=== PATIENT | male | born 1935 ===

== ENCOUNTER 2017-03-12 07:00 | Inpatient (IN) | payer OTHER, MEDICARE ==
[~2017-03-12] VITALS: Ht 175.3 cm; Wt 99.8 kg
[2017-03-23] MEDS ORDERED: ELIQUIS5 M1 PO (10:35)
[2017-03-23] MEDS ORDERED: PERCOCET 5-3251 EACH PO (10:36)
[2017-03-23] MEDS ORDERED: COREG12.5 M1 PO (10:37)
[2017-03-23] MEDS ORDERED: LISINOPRIL5 M1 PO (10:37)
[2017-03-23] MEDS ORDERED: SIMVASTATIN40 M1 PO (10:38)
[2017-03-23] MEDS ORDERED: LATANOPROST2.5 ML OU (10:39)
[2017-03-23] MEDS ORDERED: BETIMOL5 M1 OU (10:39)
[2017-03-23] MEDS ORDERED: LASIX20 M1 PO (10:40)
--- NOTE | 2017-03-23 12:58 | Admission Core Measures ---
Admission Meds I reviewed the following Meds: Current Medications Sig/Gerardo Start time Last Medication Dose Stop Time Status Admin Acetaminophen 975 MG ONCE 03/23 0000 AC (Tylenol) 03/23 2359 Atorvastatin Calcium 20 MG 1700 03/23 1700 AC (Lipitor) Carvedilol 12.5 MG DAILY 03/24 1000 UNVr (Coreg) Cefazolin Sodium 2,000 MG ONCE 03/23 0000 NR (Kefzol-Ancef Inj) 03/23 2359 Furosemide 20 MG BID 03/23 1230 AC (Lasix) Latanoprost 1 GTT AT BEDTIME 03/24 2200 AC (Xalatan) Lisinopril 5 MG DAILY 03/24 1000 AC (Prinivil) Oxycodone HCl 10 MG ONCE 03/23 AC (Roxicodone) 03/23 2359 Timolol Maleate 1 GTT DAILY 03/24 1000 UNVr (Timoptic) Acute Coronary Syndrome Inclusion Criteria ACS Diagnosis No Inpatient Core Measures LDL Reminder: If No, please order W/I first 24hr of stay Congestive Heart Failure Inclusion Criteria CHF Diagnosis No Cerebrovascular accident Inclusion Criteria CVA/TIA Diagnosis No Inpatient Core Measures Bedside Swallow Eval Reminder: If BSE failed, place ST order Antithrombotic Reminder: Order Antithrombotic Medication by end of day 2 Antithrombotic Reminder: Document Reason Antithrombotic Not ordered by end of day 2 AFIB/Flutter Reminder: If Present, add to problem list AFIB/Flutter Reminder: Order Anticoag Medication for pts with AFIB/Flutter Atherosclerosis Reminder: If Present, add to problem list LDL Reminder: If No, please order W/I first 24hr of stay PT Order Reminder: If No, please order Venous thromboembolism Inpatient Core Measures VTE Risk Factors: Age > 40, Surgery No [facility] VTE prophylaxis d/t No contraindications No VTE Pharm Prophylaxis d/t No contraindications Inclusion Criteria - Per Current guidelines, there needs to be overlap - treatment for the first 5 days of Warfarin therapy. - Parenteral Anticoagulation (IV or SC) needs to be - given along with Warfarin therapy. VTE Diagnosis No VTE Type NONE VTE Confirmed by (Test) NONE Problem List As ranked by this Provider includes Assessment & Plan 1. Unilateral primary osteoarthritis, right hip HOME MEDS Home Med List Apixaban (Eliquis) 5 MG TABLET 1 TAB PO DAILY ANTICOAG (Reported) Carvedilol (Coreg) 12.5 MG TABLET 1 TAB PO DAILY HEART HEALTH (Reported) Furosemide (Lasix) 20 MG TABLET 1 TAB PO TWICE DAILY HEART HEALTH (Reported) Latanoprost 0.005 % DROPS 1 DROP OU DAILY EYE HEALTH (Reported) Lisinopril 5 MG TABLET 1 TAB PO DAILY HEART HEALTH (Reported) Oxycodone HCl/Acetaminophen (Percocet 5-325 MG Tablet) 5 MG-325 MG TABLET 1 TAB PO EVERY 6 HRS PRN PAIN (Reported) Simvastatin (Simvastatin*) 40 MG TABLET 1 TAB PO DAILY CHOLESTEROL (Reported) Timolol (Betimol) 0.5 % DROPS 1 DROP OU DAILY EYE HEALTH (Reported)
[2017-03-23] MEDS ORDERED: ELIQUIS2.5 M1 PO (13:00)
[2017-03-23] MEDS ORDERED: DILAUDID2 M1 PO (13:00)
[2017-03-23] MEDS ORDERED: MIRALAX17 G1 PO (13:00)
[2017-03-23] MEDS ORDERED: COLACE100 M1 PO (13:00)
--- NOTE | 2017-03-23 13:04 | Patient Discharge Instructions ---
Discharge Instructions General Discharge Information You were seen/treated for: Right hip pain related to unilateral primary osteoarthritis You had these procedures: Right total hip replacement Watch for these problems: Increasing pain despite the use of pain medication. Increasing redness, warmth or swelling. Drainage of any type from incision. Inability to bear weight on operative leg. Persistent nausea and vomiting. Fever greater than 101.5 degrees. Do not soak the wound: Yes No bath, but you may shower: Yes Other wound care: Please keep wound clean and dry. No ointments or lotions of any type on or near incision at any time. No exceptions. Your dressing will be changed by your nurse on the second day after your surgery. Daily dry dressing changes are recommended each day thereafter. Do not soak your wound in a bath at any time until otherwise indicated by Dr. Celis. You may shower, please dry wound immediately after shower with a clean towel. Special Instructions: Eliquis: You will be taking 2.5 mg of eliquis twice a day for the first 10 days after your surgery. After 10 days, you will switch back to your original dosing of 5 mg once daily. Constipation: Pain medication can be very constipating. Dr. Celis has recommended that you take Colace and miralax each day. You may discontinue this medication if you develop loose stool or diarrhea. If you wish to continue this medication, it is available over the counter. If you are unable to move your bowels after several days, if you are unable to pass gas and are developing bloating, nausea, or vomiting as a result, please contact your doctor. Diet Continue normal diet: Yes Recommended Diet: Heart Healthy Activity Full Activity/No Limits: No Activity Self Limited: Yes Pounds, do NOT lift more than: 10 Acute Coronary Syndrome Inclusion Criteria At DC or during hospital stay patient has or had the following: ACS DIAGNOSIS No Discharge Core Measures Meds if any: Prescribed or Continued at Discharge Meds if any: NOT Prescribed or Continued at Discharge Congestive Heart Failure Inclusion Criteria At DC or during hospital stay patient has or had the following: CHF DIAGNOSIS No Discharge Core Measures Meds if any: Prescribed or Continued at Discharge Meds if any: NOT Prescribed or Continued at Discharge Cerebrovascular accident Inclusion Criteria At DC or during hospital stay patient has or had the following: CVA/TIA Diagnosis No Discharge Core Measures Meds if any: Prescribed or Continued at Discharge Meds if any: NOT Prescribed or Continued at Discharge Venous thromboembolism Inclusion Criteria VTE Diagnosis No VTE Type NONE VTE Confirmed by (Test) NONE Discharge Core Measures - Per Current guidelines, there needs to be overlap - treatment for the first 5 days of Warfarin therapy. - If discharged on Warfarin prior to 5 days of - overlap therapy, the patient will need to be - assessed for post discharge needs including - *Post discharge parental anticoagulation - *Warfarin and/or parental anticoagulation education - *Follow up date to check INR post discharge At least 5 days overlap therapy as Inpatient No Meds if any: Prescribed or Continued at Discharge Note: Overlap Therapy is Warfarin and Anticoagulant Meds if any: NOT Prescribed or Continued at Discharge
--- NOTE | 2017-03-23 13:09 | Surgical Discharge Summary ---
Visit Information Visit Dates Admission Date: 03/23/17 Discharge Date: 03/26/2017 History of Present Illness Chief Complaint: Right hip pain related to unilateral primary osteoarthritis Surgical History Pertinent Surgical History: non-contributory Review of Systems: See H&P Hospital Course Course Attending Physician: SAUL IRVIN MD Primary Care Physician: BATOOL BRYANT MD Hospital Course: Patient was admitted to the hospital for an elective total joint replacement. The procedure was tolerated well and the patient was transferred to a general surgical floor. Diet was advanced and tolerated and the patient voided spontaneously. The patient was evaluated and treated by physical therapy. At the time of hospital discharge, the patinets vital signs were stable and within normal limits, neurovascular status was intact, and pain was controlled with the use of oral pain medications. Allergies: Coded Allergies: No Known Allergies (03/20/17) NKA PER ANTIBIOTIC ORDER SHEET OF 03/20/17 ([facility]) Disposition Summary Disposition Principal Diagnosis: Right hip unilateral primary osteoarthritis Additional Diagnosis: None Discharge Disposition: home health services Discharge Instructions General Discharge Information Code Status: Full Code Patient's Diet: Heart healthy, advance as tolerated Patient's Activity: WBAT Follow-Up Instructions/Appts: Follow up with Dr. Irvin in 6 weeks from date of surgery. Please call his office to arrange and/or confirm this appointment. Medications at Discharge Discharge Medications: Stop taking the following medications: Apixaban (Eliquis) 5 MG TABLET ORAL DAILY Continue taking these medications: Oxycodone HCl/Acetaminophen (Percocet 5-325 MG Tablet) 5 MG-325 MG TABLET 1 Tablet ORAL EVERY 6 HRS as needed for PAIN Comments: DID NOT RECEIVE WHILE IN HOSPITAL HAS BEEN TAKING DILAUDID PO PRN Carvedilol (Coreg) 12.5 MG TABLET 1 Tablet ORAL DAILY Comments: Last Taken: 03/26/17 Time: 10:45 AM Lisinopril (Lisinopril) 5 MG TABLET 1 Tablet ORAL DAILY Comments: Last Taken: 03/26/17 Time: 10:45 AM Simvastatin (Simvastatin*) 40 MG TABLET 1 Tablet ORAL DAILY Comments: Last Taken: 03/25/17 Time: 4:30 PM Latanoprost (Latanoprost) 0.005 % DROPS 1 DROP Both Eyes DAILY Comments: Last Taken: 03/25/17 Time: 10:30 PM Timolol (Betimol) 0.5 % DROPS 1 DROP Both Eyes DAILY Comments: Last Taken: 03/26/17 Time: 10:45 AM Furosemide (Lasix) 20 MG TABLET 1 Tablet ORAL TWICE DAILY Comments: Last Taken: 03/26/17 Time: 10:45 AM Start taking the following new medications: Apixaban (Eliquis) 2.5 MG TABLET 1 Tablet ORAL TWICE DAILY Qty = 20 No Refills Instructions: TAKE 2.5 MG TWICE DAILY FOR 10 DAYS, THEN RESUME TAKING 5 MG ONCE DAILY Comments: Last Taken: 03/26/17 Time: 10:45 AM Docusate Sodium (Colace) 100 MG CAPSULE 1 Capsule ORAL TWICE DAILY Qty = 14 No Refills Instructions: DISCONTINUE USE IF YOU DEVELOP LOOSE STOOL OR DIARRHEA Comments: Last Taken: 03/26/17 Time: 10:45 AM Polyethylene Glycol 3350 (Miralax) 17 GRAM POWD.PACK 1 Packet ORAL DAILY Qty = 7 No Refills Instructions: dissolve in water, DISCONTINUE USE IF YOU DEVELOP LOOSE STOOL OR DIARRHEA Comments: Last Taken: 03/26/17 Time: 10:45 AM Hydromorphone HCl (Dilaudid) 2 MG TABLET 1-2 Tablet ORAL EVERY 4-6 HOURS as needed for PAIN Qty = 36 No Refills Comments: Last Taken: 03/26/17 Time: 1:15 PM
--- NOTE | 2017-03-23 14:27 | Operative Report ---
Operative/Inv Procedure Report Surgery Date: 03/23/17 Name of Procedure: Right total hip replacement Pre-Operative Diagnosis: Primary right hip DJD Post-Operative Diagnosis: Same Estimated Blood Loss: 350 Surgeon/Turner Machine: ALBARO LOZANO,SAUL Monzon Anesthesia: block Operative/Procedure Note Note: Description of Procedure: The patient was taken to the operating room and positively identified. After induction of spinal anesthesia and administration of appropriate pre-operative antibiotics, the patient was positioned supine on the operating room table and all bony prominences were well padded. After performing a surgical timeout, the right lower extremity was prepped and draped in the usual sterile fashion. A direct anterior approach was made to the right hip. The incision was carried sharply through superficial soft tissues to the level of the fascia. Meticulous hemostasis was maintained with Bovie electocautery. The fascia over the tensor fascia yobani muscle was opened sharply and the interval between the TFL and the sartorius was entered bluntly taking care to stay lateral to the lateral femoral cutaneous nerve. Retractors were placed around the femoral neck and the pericapsular fat was identified. The ascending branches of the lateral femoral circumflex vessels were identified and carefully coagulated. The pericapsular fat and anterior capsule were then resected. A napkin ring osteotomy was performed and the femoral head was removed without difficulty. Attention was then turned to the acetabulum. After appropriate placement of retractors, the acetabulum was exposed. Soft tissue was cleaned from the acetabular margin and notch. Overhanging osteophytes were removed and the teardrop was exposed. The acetabulum was then sequentially reamed to accept a 62 mm Anabell Tritanium hemispherical cluster hole shell. This was impacted into place in the appropriate position and one screw was used for supplemental fixation. It was then Fitted with a 36 mm Trident X3 zero degree polyethylene insert. Attention was then turned to the femur. After performing the appropriate ligament releases, the proximal femur was exposed. It was then sequentially broached to accept a size 6 Kingman accolade 2 stem. This was trialed for leg length and stability. The trial component was removed and the final component was impacted into place. The trunnion was carefully cleaned and fit with a 36 mm, +0 Biolox delta ceramic femoral head. The hip was reduced and put through a full range of motion and found to be stable. The articular space was then irrigated with sterile saline. The periarticular soft tissues were infilitrated with Marcaine. The fascial layer was closed with interrupted #1 vicryl suture and the skin was re-approximated with interrupted 2 -0 vicryl. The skin was closed with a running 3-0 V-Lock suture. Steri-strips and a sterile dressing were applied. The patient was awakened and taken to the recovery room in satisfactory condition.
--- NOTE | 2017-03-23 15:27 | RADIOLOGY REPORT ---
EXAMINATION: XR HIP, RIGHT CLINICAL INFORMATION: Status post right total hip replacement COMPARISON: None TECHNIQUE: Two views of the right hip obtained in the PACU. FINDINGS: Patient is status post right total hip arthroplasty. The femoral component is well seated within the screwed in acetabular cup. No evidence for periprosthetic fracture. Postoperative changes in surgical drain are noted. IMPRESSION: Essentially anatomic alignment status post right total hip arthroplasty. No evidence for periprosthetic fracture.
--- NOTE | 2017-03-23 16:28 | PN- Orthopedic ---
Subjective Subjective: post op check: no complaints, no pain. resting comfortably. Objective Vital Signs and I&Os Vital signs stable, afebrile Physical Exam: Well-developed well-nourished no apparent distress. HEENT: Atraumatic, extraocular motion intact Neck: Supple, no lymphadenopathy Respiratory: No respiratory distress Extremities: No edema RIGHT lower extremity hip dressing in place, Dressing clean dry and intact Hemovac drain noted in place, small amount of dark blood noted. No shortening or rotation Neurovascularly intact distally Bilateral calves are supple, nontender. Neuro: Alert and oriented x3 Psych: Mood affect normal, normal memory normal judgment. Skin: Warm and dry, no rash on exposed skin Assessment/Plan Assessment/Plan Postop day 1 status post right total hip arthroplasty, anterior approach. Weightbearing as tolerated right lower extremity Out of bed with Physical therapy DC IV fluids when tolerating by mouth well DC Hemovac drain tomorrow morning DC toribio Regular diet check am labs Dressing change postoperative day 2 Perioperative antibiotics Continue current outpatient medications Eliquis for DVT prophylaxis, starting tomorrow morning GI prophylaxis Plan for 3 day stay and discharged to assisted facility Core Measures/Miscellaneous Venous Thromboembolism VTE Risk Factors: Age > 40, Surgery VTE Contraindications: No Contraindications VTE Diagnosis: No VTE Type: NONE VTE Confirmed by (Test): NONE Beta Génesis Is Beta Génesis a Home Med? Yes If Yes, Was This Ordered Today? Yes Antibiotics Is Patient on Antibiotics? Yes If Yes: prophylaxis
[2017-03-23 17:00] VITALS: BP 112/60
--- NOTE | 2017-03-23 18:00 | NUR ---
PT RECTAL TEMP 93.8, RICE SOCKS APPLIED TO ARM PITS, EXTRA BLANKETS APPLIED. RECHECK IN ONE HOUR RECTALLY 94.4 SURGICAL PA AWARE OF ABOVE. STAT CBC ORDERED. PT A/O X 3, FEELS COOL TO TOUCH BUT STATES "I FEEL LIKE IM GETTING WARMER" WILL CONT. TO MONITOR.
--- NOTE | 2017-03-23 18:04 | NUR ---
ADMISSION NOTE FROM PACU- A/O X 3, ON RA, DENIES PAIN, DSG TO RIGHT HIP CD+I, +2 EDEMA TO BLE, +PP AND POST TIB PULSES VIA DOPPLER. ALPS APPLIED. +CMS. HEMOVAC IN PLACE, DRAINING BLOODY DRAINAGE. AWAITING TO VOID. SKIN INTACT. IVF INFUSING. FAMILY AT BEDSIDE. WILL CONTINUE TO MONITOR.
[2017-03-23 18:45] LABS: ABSOLUTE BASOPHIL COUNT 0 /CUMM (0.0-0.2); ABSOLUTE EOSINOPHIL COUNT 0.1 /CUMM (0.0-0.7); ABSOLUTE LYMPH COUNT 1.2 /CUMM (1.2-3.4); ABSOLUTE MONOCYTE COUNT 0.5 /CUMM (0.10-0.60); BASOPHIL % 0.3 % (0.0-2.0); EOSINOPHIL % 0.5 % (0-5); GRANULOCYTE % 84.4 % (42.2-75.2); MEAN CORPUSCULAR HGB 32.9 PG (27.0-31.0); MEAN CORPUSCULAR HGB CONC 32.9 G/DL (33.0-37.0); MEAN CORPUSCULAR VOLUME 100.1 FL (80.0-94.0); MEAN PLATELET VOLUME 7.5 FL (7.4-10.4); PLATELET COUNT 198 /CUMM (130-400)
[2017-03-23 18:46] LABS: ABSOLUTE GRANULOCYTE CT 9.3 /CUMM (1.4-6.5)
[2017-03-23 19:32] VITALS: BP 110/60
[2017-03-23 21:01] VITALS: BP 110/62
--- NOTE | 2017-03-23 22:32 | NUR ---
PT HAS NOT VOIDED THIS SHIFT SINCE OTM WAS REMOVED IN PACU, BLADDER SCANNED FOR 18 ML. WILL CONTINUE TO MONITOR. SURGICAL PA AWARE
[2017-03-23 22:47] VITALS: BP 102/58
[2017-03-24 03:16] VITALS: BP 124/60
[2017-03-24 07:02] VITALS: BP 132/64
[2017-03-24 08:21] LABS: ABSOLUTE BASOPHIL COUNT 0 /CUMM (0.0-0.2); ABSOLUTE EOSINOPHIL COUNT 0.1 /CUMM (0.0-0.7); ABSOLUTE GRANULOCYTE CT 6.9 /CUMM (1.4-6.5); ABSOLUTE MONOCYTE COUNT 0.8 /CUMM (0.10-0.60); BASOPHIL % 0.3 % (0.0-2.0); EOSINOPHIL % 0.6 % (0-5); GRANULOCYTE % 79.1 % (42.2-75.2); HEMATOCRIT 33.3 % (42-52); MEAN CORPUSCULAR HGB 33.2 PG (27.0-31.0); MEAN CORPUSCULAR VOLUME 100.5 FL (80.0-94.0); MEAN PLATELET VOLUME 7.8 FL (7.4-10.4); PLATELET COUNT 181 /CUMM (130-400); RED BLOOD CELL CT 3.31 /CUMM (4.70-6.10); WHITE BLOOD CELL COUNT 8.7 /CUMM (4.8-10.8)
--- NOTE | 2017-03-24 08:30 | PN- Orthopedic ---
Subjective Subjective: The patient was seen this morning postoperative day #1. He reports that his pain is under adequate control and has no other complaints at the current time. Objective Vital Signs and I&Os Vital Signs Date Time Temp Pulse Resp B/P B/P Pulse O2 O2 Flow FiO2 Mean Ox Delivery Rate 03/24 0702 98.1 72 16 132/64 93 Room Air 03/24 0316 98.0 70 18 124/60 92 Room Air 03/23 2247 96.8 64 20 102/58 92 Room Air 03/23 2101 95.9 69 18 110/62 96 Room Air 03/23 1958 Room Air Room Air 03/23 1932 95.6 70 18 110/60 95 Room Air 03/23 1756 94.4 03/23 1700 93.8 72 16 112/60 96 Intake & Output 03/24 1600 03/24 0800 03/24 0000 03/23 1600 03/23 0800 03/23 0000 Intake Total Output Total 410 Balance -410 Output, 60 Drainage Output, Urine 350 Patient 220 lb Weight Physical Exam: Gen.: Alert and in no obvious distress Skin: Warm and dry Extremities: Bilateral lower extremities are warm without calf tenderness or significant edema. Gross motor and sensory are intact. Right hip surgical dressing is slightly blood tinged at the inferior aspect but otherwise intact. There is a Hemovac drain in place with serosanguineous drainage in the chamber Assessment/Plan Assessment/Plan Assessment: [age] male status post right total hip arthroplasty postoperative day 1. The patient is progressing as expected and his pain is under adequate control. Plan: Out of bed with physical therapy Hep-Lock IV fluids DC Hemovac drain Follow-up morning laboratory studies Continue current pain regiment GI and DVT prophylaxis First surgical dressing change tomorrow Core Measures/Miscellaneous Venous Thromboembolism VTE Risk Factors: Age > 40, Surgery VTE Contraindications: No Contraindications VTE Diagnosis: No VTE Type: NONE VTE Confirmed by (Test): NONE Beta Génesis Is Beta Génesis a Home Med? Yes If Yes, Was This Ordered Today? Yes Antibiotics Is Patient on Antibiotics? No
[2017-03-24 11:15] VITALS: BP 126/80
[2017-03-24 14:51] VITALS: BP 110/60
[2017-03-24 22:27] VITALS: BP 126/86
[2017-03-25 06:36] VITALS: BP 118/74
--- NOTE | 2017-03-25 08:10 | PN- Orthopedic ---
Subjective Subjective: Reports pain controlled. Out of bed with PT yesterday. No dizziness. No shortness of breath. No chest pains. Voiding without difficulty. Passing flatus. No bm yet. He anticipates discharge to the [facility] tomorrow for rehab. Objective Vital Signs and I&Os Vital Signs Date Time Temp Pulse Resp B/P B/P Pulse O2 O2 Flow FiO2 Mean Ox Delivery Rate 03/25 0636 99.2 80 18 118/74 99 Room Air 03/24 2227 98.3 76 18 126/86 94 Room Air 03/24 2118 76 126/86 03/24 1451 98.2 69 18 110/60 91 Room Air 03/24 1207 Room Air Room Air 03/24 1115 98.0 72 18 126/80 91 Room Air 03/24 0948 Room Air Room Air 03/24 0842 72 132/64 03/24 0842 72 132/64 Intake & Output 03/25 1600 03/25 0800 03/25 0000 03/24 1600 03/24 0800 03/24 0000 Intake Total 200 800 480 Output Total 250 600 375 410 Balance -50 200 105 -410 Intake, IV 0 Intake, Oral 200 800 480 Number 0 Bowel Movements Output, 60 Drainage Output, Urine 250 600 375 350 Patient 220 lb Weight Physical Exam: General - alert & oriented x 3. comfortable. no acute distress. Lungs - clear bilaterally. no w/r/r. Cardiac - s1s2. reg. Abdomen - soft. nondistended. nontender. Extremities - warm bilaterally. no c/c/e. right hip dressing changed. steri strips in place. calves soft and nontender b/l. athrombics active. nvi. Current Medications: Current Medications Sig/Gerardo Start time Last Medication Dose Route Stop Time Status Admin Acetaminophen 1,000 MG Q6P PRN 03/23 1600 DC IV 03/24 1555 Acetaminophen 650 MG Q4P PRN 03/23 1600 AC PO Apixaban 2.5 MG BID 03/24 1000 AC 03/24 PO 2117 Atorvastatin Calcium 20 MG 1700 03/23 1700 AC 03/24 PO 155 Carvedilol 12.5 MG DAILY 03/24 1000 DC PO Carvedilol 12.5 MG BID 03/24 1000 AC 03/24 PO 2117 Docusate Sodium 100 MG BID 03/230 AC 03/24 PO 2119 Furosemide 20 MG BID 03/23 2200 AC 03/24 PO 2118 Hydromorphone HCl 2 MG Q4P PRN 03/23 1600 AC 03/25 PO 0359 Hydromorphone HCl 4 MG Q4P PRN 03/23 1600 AC 03/24 PO 2126 Latanoprost 1 GTT AT BEDTIME 03/24 2200 DC OPH Latanoprost 1 GTT AT BEDTIME 03/24 2200 AC 03/24 OPH 2119 Lisinopril 5 MG DAILY 03/24 1000 DC PO Lisinopril 5 MG DAILY 03/24 1000 AC 03/24 PO 0842 Morphine Sulfate 2 MG Q2P PRN 03/23 1600 AC 03/24 IV 1125 Omeprazole 40 MG DAILY AC 03/24 1745 AC 03/25 PO 0551 Ondansetron HCl 4 MG Q6P PRN 03/23 1600 AC IV Polyethylene Glycol 17 GM DAILY 03/24 1000 AC 03/24 PO 0842 Promethazine HCl 12.5 MG Q6P PRN 03/23 1600 AC IV 03/30 1259 Timolol Maleate 1 GTT DAILY 03/24 1000 DC OPH Timolol Maleate 1 GTT DAILY 03/24 1000 AC 03/24 OPH 0842 Results Last 48 Hours of Labs: Laboratory Tests 03/24 03/23 0615 1828 Chemistry Sodium (137 - 145 mmol/L) 133 L Potassium (3.5 - 5.1 mmol/L) 3.7 Chloride (98 - 107 mmol/L) 99 Carbon Dioxide (22 - 30 mmol/L) 30 Anion Gap (5 - 16) 4 L BUN (9 - 20 mg/dL) 15 Creatinine (0.7 - 1.2 mg/dL) 0.6 L Estimated GFR (>60 ml/min) > 60 BUN/Creatinine Ratio (7 - 25 %) 25.0 Hematology CBC w Diff NO MAN DIFF REQ NO MAN DIFF REQ WBC (4.8 - 10.8 /CUMM) 8.7 11.0 H RBC (4.70 - 6.10 /CUMM) 3.31 L 3.60 L Hgb (14.0 - 18.0 G/DL) 11.0 L 11.9 L Hct (42 - 52 %) 33.3 L 36.0 L MCV (80.0 - 94.0 FL) 100.5 H 100.1 H MCH (27.0 - 31.0 PG) 33.2 H 32.9 H RDW (11.5 - 14.5 %) 14.0 14.0 Plt Count (130 - 400 /CUMM) 181 198 MPV (7.4 - 10.4 FL) 7.8 7.5 Gran % (42.2 - 75.2 %) 79.1 H 84.4 H Lymphocytes % (20.5 - 51.1 %) 11.3 L 10.5 L Monocytes % (1.7 - 9.3 %) 8.7 4.3 Eosinophils % (0 - 5 %) 0.6 0.5 Basophils % (0.0 - 2.0 %) 0.3 0.3 Absolute Granulocytes (1.4 - 6.5 /CUMM) 6.9 H 9.3 H Absolute Lymphocytes (1.2 - 3.4 /CUMM) 1.0 L 1.2 Absolute Monocytes (0.10 - 0.60 /CUMM) 0.8 H 0.5 Absolute Eosinophils (0.0 - 0.7 /CUMM) 0.1 0.1 Absolute Basophils (0.0 - 0.2 /CUMM) 0 0 PUBS MCHC (33.0 - 37.0 G/DL) 33.0 32.9 L Assessment/Plan Assessment/Plan This 81 year old white male is POD#2 s/p right total hip arthroplasty tolerating diet pain controlled dressing changed continue PT eliquis bid - dvt ppx home meds ordered d/c planning for tomorrow to str will d/w Core Measures/Miscellaneous Venous Thromboembolism VTE Risk Factors: Age > 40, Surgery VTE Contraindications: No Contraindications VTE Diagnosis: No VTE Type: NONE VTE Confirmed by (Test): NONE Beta Génesis Is Beta Génesis a Home Med? Yes If Yes, Was This Ordered Today? Yes Antibiotics Is Patient on Antibiotics? No
[2017-03-25 14:45] VITALS: BP 118/79
[2017-03-25 23:14] VITALS: BP 94/56
[2017-03-26 06:00] VITALS: BP 114/68
[2017-03-26 10:00] VITALS: BP 140/70
--- NOTE | 2017-03-26 10:45 | PN- Orthopedic ---
Subjective Subjective: No acute overnight events reported. Pain managed well. Denies chest pain, sob, difficulty breathing. No nausea and vomitting. Has been ambulating. Objective Vital Signs and I&Os Vital Signs Date Time Temp Pulse Resp B/P B/P Pulse O2 O2 Flow FiO2 Mean Ox Delivery Rate 03/26 0600 99.0 73 20 114/68 93 Room Air 03/25 2314 98.4 69 20 94/56 93 Room Air 03/25 2235 76 120/80 03/25 1445 98.4 73 20 118/79 95 Intake & Output 03/26 1600 03/26 0800 03/26 0000 03/25 1600 03/25 0800 03/25 0000 Intake Total 100 100 480 200 800 Output Total 450 100 200 250 600 Balance -350 0 280 -50 200 Intake, Oral 100 100 480 200 800 Number 0 Bowel Movements Output, Urine 450 100 200 250 600 Physical Exam: General: Alert and oriented x3, no acute distres Cardaic: RRR, s1s2 Pulm: Expiratory wheeze right side only, left cta Abd: Non-tender Extremties: Moves all extremities, distal sensation intact, skin warm and well perfused, dp pulses palpable bilaterally, bilateral calves soft and non-tender Surgical site: Right hip, dresing dry and intact, thigh compartment soft Assessment/Plan Assessment/Plan This 81 year old white male is POD#3 s/p right total hip arthroplasty tolerating diet ducolax suppository now for bm pain controlled dressing changed continue PT eliquis bid - dvt ppx home meds ordered d/c planning for today to str will d/w Core Measures/Miscellaneous Venous Thromboembolism VTE Risk Factors: Age > 40, Surgery VTE Contraindications: No Contraindications VTE Diagnosis: No VTE Type: NONE VTE Confirmed by (Test): NONE Beta Génesis Is Beta Génesis a Home Med? Yes If Yes, Was This Ordered Today? Yes Antibiotics Is Patient on Antibiotics? No
[2017-03-26 10:50] VITALS: BP 116/60
[2017-03-26 13:03] VITALS: BP 116/60
== END 2017-03-26 14:30 | DRG 470 ==
LOC: SDA 03-23 03:59 → 2NA 03-23 03:59 → CANRESERV 03-23 15:35 → ENRESERV 03-23 15:35 → CANRESERV 03-23 15:36 → ENRESERV 03-23 15:46 → ENTRNSPT 03-23 16:27 → 2NA 03-23 16:38 → CMPTRNSPT 03-23 16:54 → 2NA 03-23 17:47 → ENPENDDIS 03-26 10:22 → 2NA 03-26 14:30
PROVIDERS: Nurse Practitioner; ADMIT Orthopaedic Surgery
PROC: 0SR904A Replacement of Right Hip Joint with Ceramic on Polyethylene Synthetic Substitute, Uncemented, Open Approach (ICD-10-PCS; principal; 2017-03-23)
DX: M16.11 Unilateral primary osteoarthritis, right hip (principal); I44.1 Atrioventricular block, second degree; C92.51 Acute myelomonocytic leukemia, in remission; I44.7 Left bundle-branch block, unspecified; E66.9 Obesity, unspecified; Z68.32 Body mass index [BMI] 32.0-32.9, adult; I48.2 Chronic atrial fibrillation; I10 Essential (primary) hypertension; H40.9 Unspecified glaucoma; Z95.0 Presence of cardiac pacemaker; Z79.01 Long term (current) use of anticoagulants
CPT/HCPCS: 2NAP; 73502-RT; 82436; 97110-GO; 97116-GO; 97161-GP; 97530-GO; J0131; J0690; J0735; J2550; J7042